=== PATIENT | female | born 1965 | race Caucasian/White ===

== ENCOUNTER 2020-07-17 13:10 | Emergency (ER) | payer OTHER ==
[~2020-07-17 13:10] MED LIST: ACYCLOVIR800 MG PO; NORCO 10-325 T1 EACH PO
== END 2020-07-17 15:50 | disposition home or self-care (01) ==
LOC: ER1 13:10
DX: S00.83XA Contusion of other part of head, initial encounter (principal); S50.02XA Contusion of left elbow, initial encounter; S00.11XA Contusion of right eyelid and periocular area, initial encounter; M54.5 Low back pain; G89.29 Other chronic pain; Z79.1 Long term (current) use of non-steroidal anti-inflammatories (NSAID); Z79.891 Long term (current) use of opiate analgesic; W00.0XXA Fall on same level due to ice and snow, initial encounter
CPT/HCPCS: 70486; 73080; 99284

== ENCOUNTER 2020-10-09 17:46 | Emergency (ER) | payer OTHER ==
[2020-10-09] MEDS ORDERED: PREDNISONE 20 M20 MG PO (19:40)
== END 2020-10-09 19:49 | disposition home or self-care (01) ==
LOC: ER1 17:46
DX: L53.9 Erythematous condition, unspecified (principal); T50.Z95A Adverse effect of other vaccines and biological substances, initial encounter
CPT/HCPCS: 99283

== ENCOUNTER 2021-01-02 13:18 | Emergency (ER) | payer OTHER ==
[~2021-01-02 13:18] MED LIST changes: +PREDNISONE 20 M20 MG PO
== END 2021-01-02 14:32 | disposition left against medical advice (07) ==
LOC: ER1 13:18
DX: Z53.21 Procedure and treatment not carried out due to patient leaving prior to being seen by health care provider (principal)

== ENCOUNTER 2021-01-05 10:37 | Emergency (ER) | payer OTHER | END 2021-01-05 12:37 | disposition home or self-care (01) | LOC: ER1 10:37 | DX: M25.512 Pain in left shoulder (principal); M19.90 Unspecified osteoarthritis, unspecified site | CPT/HCPCS: 73030; 96374; 99283; J1885 ==

== ENCOUNTER 2021-03-17 12:19 | Emergency (ER) | payer OTHER | END 2021-03-17 12:44 | disposition left against medical advice (07) | LOC: ER1 12:19 | DX: Z53.21 Procedure and treatment not carried out due to patient leaving prior to being seen by health care provider (principal) ==